=== PATIENT | male | born 1955 | race Two or more races ===

== ENCOUNTER 2024-01-12 06:41 | Emergency (ER) | payer OTHER ==
[~2024-01-12] VITALS: Ht 180.3 cm; Wt 81.6 kg
[2024-01-12] MEDS ORDERED: COZAAR25 MG PO (07:07)
[2024-01-12] MEDS ORDERED: ORPHENADRINE CITRATE 30 MG/ML AMPUL IM ONE (08:45)
[2024-01-12] MEDS ORDERED: KETOROLAC TROMETHAMINE 60 MG VIAL IM ONE (08:45)
== END 2024-01-12 11:44 | disposition home or self-care (01) ==
LOC: ER 06:43
DX: M54.10 Radiculopathy, site unspecified (principal); I10 Essential (primary) hypertension

== ENCOUNTER → 2024-01-17 | Outpatient (CLI) | payer OTHER ==
[~2024-01-17] MED LIST: COZAAR25 MG PO
== END | disposition home or self-care (01) ==
LOC: RAD 07:23
DX: R10.9 Unspecified abdominal pain (principal); Z11.59 Encounter for screening for other viral diseases; M54.59 Other low back pain; Z13.220 Encounter for screening for lipoid disorders; Z12.11 Encounter for screening for malignant neoplasm of colon; Z13.1 Encounter for screening for diabetes mellitus; Z13.29 Encounter for screening for other suspected endocrine disorder; Z12.5 Encounter for screening for malignant neoplasm of prostate; N40.0 Benign prostatic hyperplasia without lower urinary tract symptoms; I11.9 Hypertensive heart disease without heart failure; J06.9 Acute upper respiratory infection, unspecified

== ENCOUNTER 2024-03-29 07:44 | Outpatient (CLI) | payer OTHER | END 2024-03-29 07:46 | disposition home or self-care (01) | LOC: RAD 07:44 | PROVIDERS: ATTEND Orthopaedic Surgery | DX: M42.06 Juvenile osteochondrosis of spine, lumbar region (principal) ==